=== PATIENT | female | born 1965 | race Caucasian/White ===

== ENCOUNTER → 2022-04-05 09:44 | Outpatient (BNVA) | payer MEDICARE, MEDICAID, SELFPAY | PROVIDERS: PCP Family Medicine; Visit Provider Nurse Practitioner Family | DX: Z20.822 Contact with and (suspected) exposure to COVID-19 (principal) | CPT/HCPCS: 87635 ==

== ENCOUNTER 2024-02-10 12:43 | Oncology outpatient (recurring) (ONCR) | payer MEDICARE, MEDICAID, SELFPAY ==
[2024-02-10] MEDS: sodium chloride 0.9% 1,000 ML 999 ML IV (13:07)
[2024-02-10 13:11] VITALS: BP 150/82; PULSE 89; RESP 16; TEMP 37.2; O2SAT 95
[2024-02-10 14:06] VITALS: BP 170/94; PULSE 98; RESP 16; TEMP 36.6; O2SAT 96
== END 2024-02-28 23:59 | disposition home or self-care (01) ==
PROVIDERS: PCP Family Medicine; Visit Provider Family Medicine
DX: C56.9 Malignant neoplasm of unspecified ovary (principal)
CPT/HCPCS: 96360; J7030

== ENCOUNTER → 2024-11-02 11:09 | Outpatient (BNVA) | payer MEDICARE, MEDICAID, SELFPAY | PROVIDERS: PCP Family Medicine; Visit Provider Family Medicine | DX: F43.9 Reaction to severe stress, unspecified (principal); R50.9 Fever, unspecified; R53.83 Other fatigue; E03.9 Hypothyroidism, unspecified | CPT/HCPCS: 80053; 85025; 86140 ==

== ENCOUNTER 2025-04-08 08:07 | Outpatient (CLI) | payer MEDICARE, MEDICAID, SELFPAY ==
--- NOTE | 2025-04-08 08:14 | XR_ITS ---
WS: [id number] Exam: XR lumbar spine 6V w f/e [id number] Date/Time of Exam: 04/08/2025 8:16 AM Reason For Exam: SPONDYLOSIS OF LUMBOSACRAL REGION W/OUT MYEOLOPATHY No fracture or malalignment. Disc spaces are relatively well-maintained. No flexion or extension instability. Slight spondylosis. Facet DJD at L4-5 and L5-S1. XR/XR lumbar spine 6V w f/e [id number] IMPRESSION: 1. Mild degenerative changes. 2. No flexion or extension instability.
--- NOTE | 2025-04-08 08:15 | XR_ITS ---
WS: [id number] Exam: XR thoracic spine 2V [id number] Date/Time of Exam: 04/08/2025 8:16 AM Reason For Exam: THORACIC SPONDYLOSIS No fracture noted. Mild levoscoliosis. Large anterior bridging osteophytes at T9-10 and T10-T11. Normal paraspinal soft tissues. Fusion hardware in the lower C-spine. XR/XR thoracic spine 2V [id number] IMPRESSION: 1. Degenerative changes and spondylosis. Mild levoscoliosis.
== END 2025-04-08 08:08 | disposition home or self-care (01) ==
LOC: RAD 08:10
PROVIDERS: PCP Family Medicine; Visit Provider Student in an Organized Health Care Education/Training Program
DX: M47.817 Spondylosis without myelopathy or radiculopathy, lumbosacral region (principal); M47.814 Spondylosis without myelopathy or radiculopathy, thoracic region; M47.816 Spondylosis without myelopathy or radiculopathy, lumbar region; M41.84 Other forms of scoliosis, thoracic region; Z98.1 Arthrodesis status
CPT/HCPCS: 72070; 72114